=== PATIENT | female | born 1955 | race Caucasian/White ===

== ENCOUNTER → 2019-07-30 | Outpatient (CLI) | payer MEDICARE, OTHER ==
[~2019-07-30] MED LIST: CYCL10TA9 PO; PREDNISONE; TRM50T PO
--- NOTE | 2019-07-30 11:16 | Diagnostic Imaging Report ---
PROCEDURE: MRI right joint upper extremity without contrast. TECHNIQUE: Multiplanar, multisequence non contrast-enhanced MRI of the right upper extremity was accomplished. INDICATION: Shoulder pain. COMPARISON: None available. FINDINGS: Moderate degenerative changes of the acromioclavicular joint with joint space narrowing and prominent osteophyte formation. Inferiorly projecting osteophytes are slightly indenting the musculotendinous junction of the supraspinatus. Partial-thickness bursal surface tearing of the supraspinatus tendon is noted. Slightly increased signal intensity is noted within the infraspinatus tendon without full-thickness rotator cuff tear. The long head of the biceps tendon is normally located. However, expansion and increased signal intensity is noted involving the intra-articular portion of the long head of the biceps tendon. The glenoid labrum is grossly unremarkable. Subchondral cyst formation within the superolateral humeral head. Bone marrow signal intensity is unremarkable. Tiny amount of fluid within the subacromial/subdeltoid bursa. No significant shoulder joint effusion. No muscular edema or atrophy. IMPRESSION: 1. Partial-thickness tearing versus tendinosis of the intra-articular portion of the long head of the biceps tendon. 2. Bursal surface tearing of the supraspinatus tendon with associated infraspinatus tendinosis. 3. Moderate degenerative changes of the acromioclavicular joint, which is indenting the supraspinatus musculotendinous junction. Recommend clinical correlation for impingement syndrome. 4. Small amount of fluid within the subacromial/subdeltoid bursa, which may relate to underlying bursitis. This could also relate to an occult full-thickness rotator cuff tear, though none is definitely visualized on this examination. Dictated by: Dictated on workstation # [id number]
== END ==
LOC: RAD 09:51
PROVIDERS: ATTEND Nurse Practitioner Family
DX: M75.101 Unspecified rotator cuff tear or rupture of right shoulder, not specified as traumatic (principal); M19.011 Primary osteoarthritis, right shoulder
CPT/HCPCS: 73221

== ENCOUNTER → 2022-03-14 | Outpatient (CLI) | payer MEDICARE, OTHER ==
--- NOTE | 2022-03-14 14:54 | Diagnostic Imaging Report ---
INDICATION: History of coccygeal fracture. Postmenopausal screening COMPARISON: None FINDINGS: AP Spine L1-L4: [BMD (g/cm2): 1.363] [T-Score: 1.4] [Z-Score: 3.1] [BMD Previous: N/A] [BMD % Change: N/A] LT Hip Neck: [BMD (g/cm2): 0.898] [T-Score: -1.0] [Z-Score: 0.7] LT Hip Total: [BMD (g/cm2):0.936] [T-Score:-0.6] [Z-Score: 0.9] [BMD Previous: N/A] [BMD % Change: N/A] RT Hip Neck: [BMD (g/cm2):0.890] [T-Score:-1.1] [Z-Score:0.6] RT Hip Total: [BMD (g/cm2):0.914] [T-score:-0.7] [Z-Score:0.7] [BMD Previous:N/A] [BMD % Change:N/A] *Indicates significant change from prior examination based on 95% confidence level. World Health Organization criteria for BMD interpretation classify patients as Normal (T-score at or above -1.0), Osteopenic (T-score between -1.0 and -2.5) or Osteoporotic (T-score at or below -2.5). LIMITATIONS AND MODIFICATION: None. FRACTURE RISK (FRAX SCORE): The ten year probability of (%): Major Osteoporotic Fracture: [12.9] Hip Fracture: [1.3] IMPRESSION: 1. Normal bone mineral density. 2. See below National Osteoporosis Foundation guidelines on when to potentially initiate pharmacologic therapy. Based on the National Osteoporosis Foundation Guidelines, pharmacologic treatment should be initiated in any of the following, unless clinical conditions suggest otherwise: * Any patient with prior fragility fracture of the hip or vertebrae. A spine fracture indicates 5X risk for subsequent spine fracture and 2X risk for subsequent hip fracture. * Osteoporosis (T-score <-2.5). * Postmenopausal women and men age 50 and older with low bone mass/osteopenia (T-score between -1.0 and -2.5) by DXA and 10-year major osteoporotic fracture greater than 20% or a 10-year probability of hip fracture greater than 3%. These fracture risks are supplied above in the FRAX score, if applicable. * Clinician judgement and/or patient preferences may indicate treatment for people with 10-year fracture probabilities above or below these levels. Dictated by: Dictated on workstation # [id number]
--- NOTE | 2022-03-14 16:34 | Diagnostic Imaging Report ---
INDICATION: Routine screening. COMPARISON: 08/07/2017 and 12/22/2013. TECHNIQUE: 2D and 3D bilateral screening mammography was performed with CAD. FINDINGS: Bilateral subpectoral breast implants are again noted. The implant contours remain smooth. No definite extracapsular rupture is seen. Both breasts are heterogeneously dense, limiting the sensitivity of mammography. The parenchymal pattern is stable. No mass or malignant-appearing microcalcifications are seen. The axillae are unremarkable. IMPRESSION: No mammographic features suspicious for malignancy are identified. ACR BI-RADS Category 2: Benign findings. Result letter will be mailed to the patient. Note: At least 10% of breast cancer is not imaged by mammography. Dictated by: Dictated on workstation # [id number]
== END ==
LOC: RAD 13:15
PROVIDERS: ATTEND Nurse Practitioner Family
DX: Z12.31 Encounter for screening mammogram for malignant neoplasm of breast (principal); Z78.0 Asymptomatic menopausal state
CPT/HCPCS: 77063; 77067; 77080

== ENCOUNTER → 2022-03-23 | Outpatient (CLI) | payer MEDICARE ==
--- NOTE | 2022-03-23 14:23 | Diagnostic Imaging Report ---
Indication: Tailbone pain Sacrum and coccyx AP lateral views of the sacrococcyx does not show any displaced fracture. IMPRESSION: Unremarkable sacrum and coccyx. Dictated by: Dictated on workstation # [id number]
== END ==
LOC: RAD 13:32
PROVIDERS: ATTEND Nurse Practitioner Family
DX: M53.3 Sacrococcygeal disorders, not elsewhere classified (principal); Z87.81 Personal history of (healed) traumatic fracture
CPT/HCPCS: 72220